=== PATIENT | male | born 1960 | race Caucasian/White ===

== ENCOUNTER → 2018-05-20 | Day surgery (SDC) | payer BC ==
[~2018-05-20] MED LIST: AMOX250T PO; ATOR20TA PO; FLUO10CA13 PO; IBUP400T18 PO; IV RINGERS SOLUTION,LACTATED 1,000 ML IV SCH; LIDOCAINE 1% PF 2 ML VIAL. ID PRN; MULT1TAB52 PO; PROPOFOL 10,000 MCG/ML (20ML) VIAL IV ONE; PROPOFOL 20 ML IV ONE
[2018-05-20 12:45] VITALS: BP 129/78
== END | disposition home or self-care (01) ==
LOC: SURG 09:37
PROVIDERS: ATTEND Internal Medicine Gastroenterology
DX: Z12.11 Encounter for screening for malignant neoplasm of colon (principal); K08.409 Partial loss of teeth, unspecified cause, unspecified class; Z98.890 Other specified postprocedural states; E78.5 Hyperlipidemia, unspecified; Z79.2 Long term (current) use of antibiotics; Z79.899 Other long term (current) drug therapy
CPT/HCPCS: 45378; J2704

== ENCOUNTER → 2021-08-22 | Outpatient (CLI) | payer BC ==
[2018-05-20 12:45] VITALS: BP 129/78
[~2021-08-22] MED LIST changes: -IV RINGERS SOLUTION,LACTATED 1,000 ML IV SCH; -LIDOCAINE 1% PF 2 ML VIAL. ID PRN; +MULT-445 PO; -MULT1TAB52 PO; -PROPOFOL 10,000 MCG/ML (20ML) VIAL IV ONE; -PROPOFOL 20 ML IV ONE
--- NOTE | 2021-08-22 20:02 | CARD ---
MR#: [id number] Date of Study: 08/22/2021 Ordering Physician: SHANTELL HUERTA, Referring Physician: SHANTELL HUERTA, Tech: Aicha Ulloa, [facility] APPROVED REPORT EXAM: Two-dimensional and M-mode echocardiogram with Doppler and color Doppler. Other Information Quality : GoodHR: 53bpm Technically limited study due to INDICATION Atrial Fibrillation RISK FACTORS Hyperlipidemia 2D DIMENSIONS RVDd3.8 (2.9-3.5cm)Left Atrium(2D)3.5 (1.6-4.0cm) IVSd1.1 (0.7-1.1cm)Aortic Root(2D)3.5 (2.0-3.7cm) LVDd5.2 (3.9-5.9cm)LVOT Diameter2.2 (1.8-2.4cm) PWd1.1 (0.7-1.1cm)LVDs3.6 (2.5-4.0cm) FS (%) 30.5 %SV74.4 ml LVEF(%)57.6 (>50%) Aortic Valve AoV Peak Chito.101.2cm/sAoV VTI21.7cm AO Peak GR.4.1mmHgLVOT Peak Chito.74.9cm/s LVOT VTI 15.27cmAO Mean GR.2mmHg ASHVIN (VMAX)2.01kg5GUR (VTI)2.70cm2 Mitral Valve MV E Qxvujukz86.0cm/sMV E Peak Gr.2mmHg MV DECEL [id number] A Icfjfclj95.9cm/s MV E Mean Gr.0mmHgE/A Ratio2.6 Pulmonary Valve PV Peak Renmhuwm86.2cm/sPV Peak Grad.3mmHg Tricuspid Valve TR P. Methadwx744gl/sRAP MFOEZRTU4qwXm TR Peak Gr.49ybInPKDK74zzBw Pulmonary Vein S1 Ydflcrlt71.7cm/sD2 Vbsxpopt11.2cm/s LEFT VENTRICLE The left ventricle is normal size. There is mild concentric left ventricular hypertrophy. The systoli c function is mildly impaired. The Ejection Fraction is 45-50%. There is mild global hypokinesis of t he left ventricle. Tissue Doppler imaging reveals moderate left ventricular diastolic dysfunction. RIGHT VENTRICLE The right ventricle is mildly dilated. There is normal right ventricular wall thickness. The right ve ntricular systolic function is normal. ATRIA The left atrium is borderline dilated. The right atrium is mildly dilated. The interatrial septum is intact with no evidence for an atrial septal defect or patent foramen ovale as noted on 2-D or Dopple r imaging. AORTIC VALVE The aortic valve is normal in structure and function. Doppler and Color Flow revealed trace aortic re gurgitation. There is no significant aortic valvular stenosis. Calculated aortic valve area is 2.7 cm 2 with maximum pressure gradient of 4 mmHg and mean pressure gradient of 2 mmHg. MITRAL VALVE The mitral valve is normal in structure and function. There is no evidence of mitral valve prolapse. There is no mitral valve stenosis. Doppler and Color-flow revealed trace to mild mitral regurgitation . TRICUSPID VALVE The tricuspid valve is normal in structure and function. Doppler and Color Flow revealed trace tricus pid regurgitation with an estimated PAP of 40 mmHg. There is no tricuspid valve stenosis. PULMONIC VALVE The pulmonic valve is not well visualized. Doppler and Color Flow revealed trace pulmonic valvular re gurgitation. There is no pulmonic valvular stenosis. GREAT VESSELS The aortic root is normal in size. IVC is not well visualized. PERICARDIAL EFFUSION There is no evidence of significant pericardial effusion. Critical Notification Critical Value: No <Conclusion> The systolic function is mildly impaired. The Ejection Fraction is 45-50%. There is mild global hypokinesis of the left ventricle. Signed by : Shantell Huerta, Electronically Approved : 08/22/2021 20:01:37
== END ==
LOC: ECHO 07:47
PROVIDERS: ATTEND Internal Medicine Cardiovascular Disease
DX: I34.0 Nonrheumatic mitral (valve) insufficiency (principal); I48.91 Unspecified atrial fibrillation
CPT/HCPCS: 93306

== ENCOUNTER → 2021-08-24 | Outpatient (CLI) | payer BC ==
[2018-05-20 12:45] VITALS: BP 129/78
--- NOTE | 2021-08-24 15:29 | RAD ---
MR#: [id number] Date of Study: 08/24/2021 Ordering Physician: SHANTELL BRONSON, Referring Physician: CRESCENCIO MEZA Tech: [employer] (R) (N) APPROVED REPORT Test Type: Exercise Stress Nurse/Tech: [employer] (R) (N)Yelena Arenas Test Indications: A-Fib Medications: See EHR Resting Heart Rate: 116 bpm Resting Blood Pressure: 138/62mmHg Pretest Chest Pain: No chest pain Stress Symptoms Dyspnea POST EXERCISE Reason for Termination: Reached target heart rate Target HR: 136 Max HR: 200 bpm 147% of Maximum Predicted HR: 136 bpm Exercise duration: 4:50 min:sec, 2 Stage Exercise capacity: 7.0 (7.4) 94%METs Max Blood Pressure: 138/62mmHg Blood Pressure response to exercise: Normal blood pressure response during stress. Heart Rate response to exercise: Increased Chest Pain: No. Arrhythmia: . A-Fib ST Change: No. INTERPRETATION Stress EKG Conclusion: No evidence of stress induced EKG changes. Imaging Protocol IMAGE PROTOCOL: Rest Tc-99m/stress Tc-99m 1 day Rest: Stress: Viability: Radiopharm.Tc99m RfkghpkdrCt92t Sestamibi Jzox5pNw 34mCi Duration 15min. 15min. Img Date 08/24/2021 08/24/2021 Inj-Img Almi45nti. 70min. Rest Admin Site:IV - Left AntecubitalAdministrator: [employer] (R)(N) Stress Admin Site: IV - Left AntecubitalAdministrator: [employer] (R)(N) STRESS DATA End Diast. Vol.118.0mlAv. Heart Rate88.0bpm End Syst. Vol.63.0mlCO Index BSA0.0L/min Myocardial Mzpc704.0gEject. Wkqrjywh59.0% Stress Rates Pk. Fill Rate2.02EDV/secLVtime Pk. Fill 213.65msec Pk. Empty Rate3.61ESV/secLVtime Pk. Kpbqx716.65msec /3 Pk. Fill0.74EDV/sec Stress Scores Regional WT2.00Summed WT20.00 Regional WM1.00Summed WM10.00 LV Perfusion There is a moderate sized basal to mid inferior wall fixed defect suggestive of prior infarct versus diaphragmatic attenuation. Wall Motion Mild global hypokinesis with an ejection fraction of 48% LV Perf. Quant 17 Seg. SSS5.00 17 Seg. SRS9.00 17 Seg. SDS0.00 Stress Defect Extent (% LAD)0.00Rest Defect Extent (% LAD)0.00Rev. Defect Extent (% LAD)0.00 Stress Defect Extent (% LCX) 6.30Rest Defect Extent (% LCX)32.50Rev. Defect Extent (% LCX)0.00 Stress Defect Extent (% RCA)11.10Rest Defect Extent (% RCA)36.70Rev. Defect Extent (% RCA)0.00 Stress Defect Extent (% SHONDA)4.80Rest Defect Extent (% SHONDA)16.70Rev. Defect Extent (% SHONDA)0.00 Other Information Quality:Fair Risk Assessment: Moderate Risk Conclusion 1. Baseline EKG with A. fib with RVR 2. Fixed basal to mid inferior wall defect suggestive of prior infarct versus diaphragmatic attenuati on 3. Mild LV dysfunction, EF 48% 4. Moderate risk for future cardiovascular events Signed by : Shantell Bronson, Electronically Approved : 08/24/2021 15:29:11
== END ==
LOC: NM 07:53
PROVIDERS: ATTEND Internal Medicine Cardiovascular Disease
DX: I48.91 Unspecified atrial fibrillation (principal)
CPT/HCPCS: 78452; 93017; A9500